=== PATIENT | female | born 1985 | race Two or more races ===

== ENCOUNTER 2019-12-24 12:17 | Emergency (ER) | payer SELFPAY ==
[~2019-12-24] VITALS: Ht 154.9 cm; Wt 65.8 kg
--- NOTE | 2019-12-24 12:25 | NUR ---
[id number] FRM HOME C/O EPIGASTRIC PAIN, NAUSEA. PT STS 23 WEEKS , DENIES VAGINAL BLEEDING COOK MORNING. TO ER BED 16, HOOKED TO IMAGE EDITOR AND POX, CHANGED TO HOSP GOWN, WARM BLANKET PROVIDED, PATIENT AO X 4, BREATHING EVEN AND UNLABORED, NAD NOTED. AWAITING MD CORONADO
--- NOTE | 2019-12-24 12:28 | NUR ---
KEAGAN CRAFT AT BEDSIDE
--- NOTE | 2019-12-24 12:38 | NUR ---
CALLED DR. ALEJANDRINA RAINES [employer].
[2019-12-24] MEDS ORDERED: ACETAMINOPHEN ES 500 MG TABLET ONE (12:46)
[2019-12-24 12:51] LABS: BASOPHILS # (AUTO) 0.1 /CMM (0.0-0.2); BASOPHILS % (AUTO) 0.5 % (0.0-2.0); EOSINOPHILS % (AUTO) 1.2 % (0.0-6.0); HEMATOCRIT 34 % (33-45); HEMOGLOBIN 11.7 g/dL (11.5-14.8); LYMPHOCYTES # (AUTO) 1.7 /CMM (0.8-4.8); LYMPHOCYTES % (AUTO) 15.6 % (20.0-44.0); MEAN CORPUSCULAR HGB CONC 34 g/dl (31.0-36.0); MEAN CORPUSCULAR VOLUME 85 fL (82-100); MONOCYTES # (AUTO) 0.9 /CMM (0.1-1.30); MONOCYTES % (AUTO) 8.6 % (2.0-12.0); NEUTROPHILS # (AUTO) 8.1 /CMM (1.8-8.9); NEUTROPHILS % (AUTO) 74.1 % (43.0-81.0); PLATELET COUNT (AUTO) 213 /CMM (150-450); RED BLOOD CELL COUNT(AUTO) 4.02 MIL/uL (4.0-5.2); WHITE BLOOD COUNT (AUTO) 10.9 K/uL (4.3-11.0)
[2019-12-24] MEDS ORDERED: IV NS 0.9% 1,000 ML BAG IV ONE (13:00)
[2019-12-24] MEDS ORDERED: ACETAMINOPHEN ES 500 MG TABLET PO ONE (13:00)
[2019-12-24 13:01] LABS: CALCIUM, SERUM 8.9 mg/dL (8.5-10.1); CREATININE 0.5 mg/dL (0.6-1.3); POTASSIUM 3.5 mmol/L (3.5-5.1)
[2019-12-24 13:06] LABS: APPEARANCE,URINE Cloudy (CLEAR); BILIRUBIN,URINE Negative (NEGATIVE); BLOOD, URINE Negative Ery/uL (NEGATIVE); COLOR,URINE Yellow (YELLOW); KETONES,URINE Negative (NEGATIVE); LEUKOCYTE ESTERASE ,URINE Small (NEGATIVE); NITRITE, URINE Negative (NEGATIVE); PH,URINE 7.5 (5.0-8.0); PROTEIN,URINE Negative (NEGATIVE); UGLUCOSE Negative (NEGATIVE); UROBILINOGEN,URINE 0.2 EU/dL (0.2)
[2019-12-24 13:07] LABS: ALBUMIN 3.1 g/dL (3.4-5.0); BILIRUBIN,DIRECT 0.1 mg/dL (0.0-0.2); BILIRUBIN,TOTAL 0.3 mg/dL (0.2-1.0); TOTAL PROTEIN, SERUM 7.9 g/dL (6.4-8.2)
[2019-12-24 13:11] LABS: BACTERIA,URINE None seen /HPF (None Seen); RBC,URINE 0-2 /HPF (0-2); SQUAMOUS EPITHELIAL CELL,UR Few /HPF (None Seen)
--- NOTE | 2019-12-24 15:24 | NUR ---
IV removed. Catheter intact and site benign. Pressure and 4x4 applied to site. No bleeding noted.Patient discharged to home in stable condition. Written and verbal after care instructions given. Patient verbalizes understanding of instruction.
[2019-12-24 15:26] VITALS: BP 112/64
== END 2019-12-24 15:27 | disposition home or self-care (01) ==
LOC: ER 12:18
DX: O99.612 Diseases of the digestive system complicating pregnancy, second trimester (principal); O26.892 Other specified pregnancy related conditions, second trimester; K80.50 Calculus of bile duct without cholangitis or cholecystitis without obstruction; R10.13 Epigastric pain; Z3A.23 23 weeks gestation of pregnancy
CPT/HCPCS: 36415; 76705; 76856; 80048; 80076; 81001; 83690; 85025; 87086; 93005; 99284; J7030; 81000-TC; 87186-TC